=== PATIENT | female | born 1960 | race Caucasian/White ===

== ENCOUNTER 2019-12-04 12:48 | Observation (INO) ==
[2019-12-04 13:35] LABS: VBG HCO3 25 mEq/L (21-27); VBG PCO2 48 mmHg (41-51); VBG PH 7.33 pH Units (7.32-7.42); VBG PO2 99 mmHg (25-50)
[2019-12-04 13:38] LABS: Basophils # 0.1 K/mcL (0.0-0.2); Basophils % 1.2 %; Eosinophils # 0.1 K/mcL (0.0-0.6); Eosinophils % 2.8 %; Hematocrit 36.3 % (35.3-44.9); Hemoglobin 11.8 g/dL (11.5-15.4); INR 0.9; Immature Granulocytes % 0.2 % (0-4); Lymphocytes # 2.6 K/mcL (0.6-4.6); Lymphocytes % 52.1 %; Mean Corpuscular HGB Conc 32.5 g/dL (31.6-35.5); Mean Corpuscular Hemoglobin 35.1 pg (28.0-33.3); Mean Platelet Volume 9.3 fL (9.4-12.4); Monocytes # 0.5 K/mcL (0.0-1.3); Monocytes % 10.3 %; Neutrophils # 1.7 K/mcL (1.6-8.9); Platelet Count 114 K/mcL (140-400); Prothrombin Time 10.1 Seconds (9.4-12.1); Red Blood Count 3.36 M/mcL (3.82-4.97); Red Cell Distribution Width 14.3 % (11.5-14.5); Segmented Neutrophils % 33.4 %; White Blood Count 5.1 K/mcL (4.3-11.1)
[2019-12-04 13:55] LABS: Alanine Aminotransferase 40 Units/L (7-52); Albumin 3.8 g/dL (3.5-5.7); Albumin/Globulin Ratio 1.7 (1.1-2.2); Alkaline Phosphatase 129 Units/L (34-104); Aspartate Amino Transferase 121 Units/L (13-39); BUN/Creatinine Ratio 11 (6-26); Bilirubin,Direct 0.1 mg/dL (0.0-0.2); Bilirubin,Indirect 0.3 mg/dL (0.0-1.0); Bilirubin,Total 0.4 mg/dL (0.3-1.0); Blood Urea Nitrogen 7 mg/dL (6-20); Calcium 9.2 mg/dL (8.6-10.3); Carbon Dioxide 22 mEq/L (23-29); Chloride 106 mEq/L (98-107); Creatine Kinase 101 Units/L (30-223); Ethanol 271 mg/dL (Less than 10); Globulin 2.3 g/dL (2.4-3.5); Glucose 93 mg/dL (70-105); Osmolality,Calculated 292 (280-300); Potassium 3.3 mEq/L (3.5-5.1); Sodium 142 mEq/L (136-145); Total Protein 6.1 g/dL (6.4-8.9); Troponin I < 0.03 ng/mL (< 0.04); eGFR For African Americans > 60 (> 60); eGFR For Non-African Americans > 60 (> 60)
[2019-12-04 13:58] LABS: Bilirubin,Urine Negative (Negative); Blood,Urine Negative (Negative); Clarity,Urine Clear (Clear); Color,Urine Colorless (Yellow); Glucose,Urine (UA) Normal (Normal); Ketones,Urine Negative (Negative); Leukocyte Esterase,Urine Negative (Negative); Nitrite,Urine Negative (Negative); Protein,Urine Negative (Neg-Trace); Specific Gravity,Urine 1.005 (1.010-1.025); Urobilinogen,Urine Normal (Normal)
[2019-12-04 14:08] LABS: Amphetamine Screen,Urine Negative ng/mL (Cutoff=1000); Barbiturate Screen,Urine Negative ng/mL (Cutoff=200); Benzodiazepines Screen,Urine Negative ng/mL (Cutoff=200); Cannabinoid Screen,Urine Negative ng/mL (Cutoff = 50); Cocaine Screen,Urine Negative ng/mL (Cutoff= 300); Opiate Screen,Urine Positive ng/mL (Cutoff=300); Phencyclidine Screen,Urine Negative ng/mL (Cutoff=25)
[2019-12-04] MEDS ORDERED: Potassium Chloride 40 MEQ, Lidocaine 1% 2 ML in D5% in Water 500 ML IVPB ONE (14:49)
[2019-12-04] MEDS ORDERED: *HR* HYDROcodone/Acet 5/325 mg TABLET PO PRN (16:03)
[2019-12-04] MEDS ORDERED: Naloxone 0.4 MG/ML INJ IVP PRN (16:03)
[2019-12-04] MEDS ORDERED: Ondansetron 4 MG/2 ML VIAL IVP PRN (16:03)
[2019-12-04] MEDS ORDERED: D5% in Water 1,000 ML IVC PRN (16:06)
[2019-12-04] MEDS ORDERED: Dextrose Gel 15 GM/37.5 ML TUBE PO PRN ×2 (16:06)
[2019-12-04] MEDS ORDERED: *HR* LORazepam 2 MG/ML VIAL IVP PRN ×3 (16:06→16:08)
[2019-12-04] MEDS ORDERED: *HR* Dextrose 50 % in Water (Vial) 50 ML VIAL IVP PRN (16:06)
[2019-12-04 16:34] LABS: Lipase 45 Units/L (11-82)
[2019-12-04] MEDS ORDERED: Thiamine (B-1) 100 MG, Folic Acid 1 MG, MVI, adult with vitamin K 10 ML in 0.9 % Sodi... IVPB SCH (18:00)
[2019-12-04] MEDS: Lactulose Oral Soln 20 GM/30 ML UDC PO SCH (19:59)
[2019-12-04] MEDS: Nicotine 21 MG PATCH.TD24 TD SCH (20:03)
[2019-12-04] MEDS: Insulin LISPRO 300 UNITS/3 ML VIAL SQ SCH (20:03)
[2019-12-05] MEDS: Insulin LISPRO 300 UNITS/3 ML VIAL SQ SCH ×2 (02:16→06:08)
[2019-12-05 04:17] LABS: Eosinophils % 1.4 %
[2019-12-05 04:19] LABS: Basophils % 0.5 %; Eosinophils # 0.1 K/mcL (0.0-0.6); Hematocrit 38.1 % (35.3-44.9); Hemoglobin 12.4 g/dL (11.5-15.4); Immature Granulocytes % 0.3 % (0-4); Immature Platelets 3.2 % (1.1-6.1); Lymphocytes # 1.6 K/mcL (0.6-4.6); Lymphocytes % 18.3 %; Mean Corpuscular HGB Conc 32.5 g/dL (31.6-35.5); Mean Corpuscular Hemoglobin 36.3 pg (28.0-33.3); Mean Corpuscular Volume 111.4 fL (83.0-100.0); Mean Platelet Volume 9.8 fL (9.4-12.4); Monocytes # 0.5 K/mcL (0.0-1.3); Monocytes % 6.3 %; Neutrophils # 6.3 K/mcL (1.6-8.9); Platelet Count 116 K/mcL (140-400); Red Blood Count 3.42 M/mcL (3.82-4.97); Red Cell Distribution Width 14.3 % (11.5-14.5); Segmented Neutrophils % 73.2 %; White Blood Count 8.6 K/mcL (4.3-11.1)
[2019-12-05 04:40] LABS: BUN/Creatinine Ratio 14 (6-26); Blood Urea Nitrogen 6 mg/dL (6-20); Calcium 8.2 mg/dL (8.6-10.3); Carbon Dioxide 25 mEq/L (23-29); Chloride 106 mEq/L (98-107); Glucose 90 mg/dL (70-105); Magnesium 1.2 mg/dL (1.6-2.6); Osmolality,Calculated 283 (280-300); Potassium 3.9 mEq/L (3.5-5.1); Sodium 138 mEq/L (136-145); eGFR For African Americans > 60 (> 60); eGFR For Non-African Americans > 60 (> 60)
[2019-12-05 05:42] LABS: Platelet Estimate Normal (Normal)
[2019-12-05 07:08] VITALS: BP 138/87
[2019-12-05] MEDS: Lactulose Oral Soln 20 GM/30 ML UDC PO SCH (08:29)
[2019-12-05] MEDS: Nicotine 21 MG PATCH.TD24 TD SCH (08:29)
== END 2019-12-05 10:25 | disposition home or self-care (01) ==
LOC: 3BNU 12:48 → EMEROOARM 12:48 → 3BNU 18:40
PROVIDERS: ADMIT Internal Medicine; ATTEND Internal Medicine

== ENCOUNTER 2021-11-03 23:42 | Inpatient (IN) ==
[2021-11-04 00:48] LABS: Basophils % 0.2 %; Eosinophils % 0.1 %; Hematocrit 27.3 % (35.3-44.9); Hemoglobin 9.8 g/dL (11.5-15.4); Immature Granulocytes % 0.4 % (0-4); Lymphocytes # 1.1 K/mcL (0.6-4.6); Lymphocytes % 8.6 %; Mean Corpuscular HGB Conc 35.9 g/dL (31.6-35.5); Mean Corpuscular Hemoglobin 32.7 pg (28.0-33.3); Mean Platelet Volume 12.2 fL (9.4-12.4); Monocytes # 0.8 K/mcL (0.0-1.3); Monocytes % 6.1 %; Neutrophils # 10.7 K/mcL (1.6-8.9); Platelet Count 134 K/mcL (140-400); Red Cell Distribution Width 17.2 % (11.5-14.5); Segmented Neutrophils % 84.6 %; White Blood Count 12.6 K/mcL (4.3-11.1)
[2021-11-04 01:09] LABS: Alanine Aminotransferase 24 Units/L (7-52); Albumin 2.7 g/dL (3.5-5.7); Alkaline Phosphatase 383 Units/L (34-104); Aspartate Amino Transferase 116 Units/L (13-39); BUN/Creatinine Ratio 16 (6-26); Bilirubin,Total 6.9 mg/dL (0.3-1.0); Blood Urea Nitrogen 9 mg/dL (8-23); Calcium 8.2 mg/dL (8.6-10.3); Carbon Dioxide 30 mEq/L (23-29); Chloride 77 mEq/L (98-107); Globulin 2.7 g/dL (2.4-3.5); Glucose 126 mg/dL (70-105); Osmolality,Calculated 246 (280-300); Sodium 118 mEq/L (136-145); Total Protein 5.4 g/dL (6.4-8.9); Troponin I 0.03 ng/mL (< 0.04); eGFR For African Americans > 60 (> 60); eGFR For Non-African Americans > 60 (> 60)
[2021-11-04] MEDS ORDERED: Iopamidol - 370 500 ML MLS IVP ONE (03:03)
[2021-11-04 03:45] LABS: INR 1.8; Prothrombin Time 19.9 Seconds (9.4-12.1)
[2021-11-04 03:47] LABS: Activated Partial Thrombo Time 31.4 Seconds (26.0-36.0)
[2021-11-04] MEDS ORDERED: CefTRIAXone 1,000 MG VIAL IM ONE (04:30)
[2021-11-04] MEDS ORDERED: cefTRIAXone 1,000 MG in 0.9 % Sodium Chloride 10 ML IVP ONE (04:33)
[2021-11-04 04:41] LABS: Bilirubin,Urine Negative (Negative); Blood,Urine Negative (Negative); Clarity,Urine Clear (Clear); Color,Urine Light-Yellow (Yellow); Glucose,Urine (UA) Normal (Normal); Ketones,Urine Negative (Negative); Leukocyte Esterase,Urine Negative (Negative); Nitrite,Urine Negative (Negative); Protein,Urine Negative (Neg-Trace); Specific Gravity,Urine 1.018 (1.010-1.025); Urobilinogen,Urine Normal (Normal)
[2021-11-04] MEDS ORDERED: Ondansetron 4 MG/2 ML VIAL IVP PRN (04:50)
[2021-11-04] MEDS ORDERED: Naloxone 0.4 MG/ML INJ IVP PRN (04:50)
[2021-11-04 04:54] LABS: Amphetamine Screen,Urine Negative ng/mL (Cutoff=1000); Barbiturate Screen,Urine Negative ng/mL (Cutoff=200); Benzodiazepines Screen,Urine Negative ng/mL (Cutoff=200); Cannabinoid Screen,Urine Positive ng/mL (Cutoff = 50); Cocaine Screen,Urine Negative ng/mL (Cutoff= 300); Opiate Screen,Urine Negative ng/mL (Cutoff=300); Phencyclidine Screen,Urine Negative ng/mL (Cutoff=25)
[2021-11-04] MEDS ORDERED: D5% in Water 1,000 ML IVC PRN (05:23)
[2021-11-04] MEDS ORDERED: *HR* Dextrose 50 % in Water (Syg) 50 ML SYRINGE IVP PRN (05:23)
[2021-11-04] MEDS ORDERED: Dextrose Gel 15 GM/37.5 ML TUBE PO PRN ×2 (05:23)
[2021-11-04] MEDS ORDERED: Lactulose 200 GM, Sodium Chloride IRRigation 700 ML RC ONE (05:29)
[2021-11-04] MEDS ORDERED: Albumin 25% 25gram/100mL 25 GM/100 ML IV.SOLN IVPB ONE (06:13)
[2021-11-04] MEDS: MetroNIDAZOLE 500 MG/100 ML 500 MG/100 ML BAG IVPB SCH ×3 (06:33→23:58)
[2021-11-04] MEDS ORDERED: *HR* LORazepam 2 MG/ML VIAL IVP PRN ×2 (06:36)
[2021-11-04 06:41] LABS: ABG Base Excess 6 mEq/L (-2 to 3); ABG HCO3 30 mEq/L (21-27); ABG Oxygen Saturation 96 % (95-98); ABG PCO2 37 mmHg (35-45); ABG PH 7.51 pH Units (7.32-7.45); ABG PO2 71 mmHg (85-104); ABG TCO2 31 mEq/L (20-26)
[2021-11-04] MEDS ORDERED: 0.9 % Sodium Chloride 1,000 ML IVC SCH (07:00)
[2021-11-04] MEDS ORDERED: Potassium Chloride Elixir 20 MEQ/15 ML UDC PO ONE (07:24)
[2021-11-04 07:27] LABS: Acetaminophen < 10 mcg/mL (10-20); Ethanol 19 mg/dL (Less than 10); Salicylate < 2.5 mg/dL (15.0-30.0)
[2021-11-04 07:34] LABS: Albumin 2.6 g/dL (3.5-5.7); BUN/Creatinine Ratio 15 (6-26); Blood Urea Nitrogen 7 mg/dL (8-23); Calcium 8.3 mg/dL (8.6-10.3); Carbon Dioxide 33 mEq/L (23-29); Chloride 81 mEq/L (98-107); Glucose 100 mg/dL (70-105); Lactate Dehydrogenase 163 Units/L (140-271); Osmolality,Calculated 248 (280-300); Potassium 2.5 mEq/L (3.5-5.1); Sodium 120 mEq/L (136-145); eGFR For African Americans > 60 (> 60); eGFR For Non-African Americans > 60 (> 60)
[2021-11-04 08:13] LABS: Adenovirus Not Detected (Not Detect); Bordetella Pertussis Not Detected (Not Detect); Chlamydophila pneumoniae Not Detected (Not Detect); Coronavirus 229E Not Detected (Not Detect); Coronavirus HKU1 Not Detected (Not Detect); Coronavirus NL63 Not Detected (Not Detect); Coronavirus OC43 Not Detected (Not Detect); Human Metapneumovirus Not Detected (Not Detect); Human Rhinovirus/Enterovirus Not Detected (Not Detect); Influenza A Subtype 2009 H1 Not Detected (Not Detect); Influenza B Not Detected (Not Detect); Mycoplasma pneumoniae Not Detected (Not Detect); Parainfluenza Virus 1 Not Detected (Not Detect); Parainfluenza Virus 2 Not Detected (Not Detect); Parainfluenza Virus 3 Not Detected (Not Detect); Parainfluenza Virus 4 Not Detected (Not Detect); Respiratory Syncytial Virus Not Detected (Not Detect)
[2021-11-04 08:15] LABS: SARS-CoV-2 DETECTED (Not Detect)
[2021-11-04] MEDS: Lactulose Oral Soln 20 GM/30 ML UDC PO SCH ×3 (08:35→20:51)
[2021-11-04] MEDS: Thiamine (B-1) 100 MG TABLET PO SCH (08:36)
[2021-11-04] MEDS: Folic Acid 1 MG TABLET PO SCH (08:36)
[2021-11-04] MEDS: Vitamin B Complex/Vit C/Vit E 1 EACH TABLET PO SCH (08:36)
[2021-11-04] MEDS: Lactobacillus 1 EACH CAP.SPRINK PO SCH ×2 (08:36→20:51)
[2021-11-04] MEDS ORDERED: Furosemide 40 MG TABLET PO SCH (09:00)
[2021-11-04] MEDS ORDERED: predniSONE 20 MG TABLET PO SCH (09:00)
[2021-11-04] MEDS ORDERED: Chlorhexidine Rinse 15 ML MOUTHWASH MM SCH (09:00)
[2021-11-04] MEDS: Nicotine 21 MG PATCH.TD24 TD SCH (09:24)
[2021-11-04] MEDS ORDERED: Ipratropium/Albuterol Neb 3 ML IH SCH (10:00)
[2021-11-04 10:19] LABS: BUN/Creatinine Ratio 14 (6-26); Blood Urea Nitrogen 6 mg/dL (8-23); Calcium 8.7 mg/dL (8.6-10.3); Carbon Dioxide 33 mEq/L (23-29); Chloride 83 mEq/L (98-107); Glucose 90 mg/dL (70-105); Osmolality,Calculated 255 (280-300); Potassium 2.8 mEq/L (3.5-5.1); Sodium 124 mEq/L (136-145); eGFR For African Americans > 60 (> 60); eGFR For Non-African Americans > 60 (> 60)
[2021-11-04 10:21] LABS: Uric Acid 4.3 mg/dL (2.3-7.6)
[2021-11-04] MEDS: Budesonide/Formoterol 160/4.5 1 PUFF INH IH SCH ×2 (11:02→22:06)
[2021-11-04] MEDS: Ipratropium 1 PUFF INHALER IH SCH ×3 (11:02→22:05)
[2021-11-04] MEDS: 0.9 % Sodium Chloride w KCl 20 MEQ/1,000 ML MLS IVC SCH (13:16)
[2021-11-04 17:03] LABS: BUN/Creatinine Ratio 14 (6-26); Blood Urea Nitrogen 6 mg/dL (8-23); Calcium 8.6 mg/dL (8.6-10.3); Carbon Dioxide 32 mEq/L (23-29); Chloride 89 mEq/L (98-107); Glucose 157 mg/dL (70-105); Osmolality,Calculated 261 (280-300); Potassium 3.8 mEq/L (3.5-5.1); Sodium 125 mEq/L (136-145); eGFR For African Americans > 60 (> 60); eGFR For Non-African Americans > 60 (> 60)
[2021-11-04 19:15] LABS: BUN/Creatinine Ratio 13 (6-26); Blood Urea Nitrogen 6 mg/dL (8-23); Calcium 8.6 mg/dL (8.6-10.3); Carbon Dioxide 29 mEq/L (23-29); Chloride 90 mEq/L (98-107); Glucose 170 mg/dL (70-105); Osmolality,Calculated 264 (280-300); Potassium 3.6 mEq/L (3.5-5.1); Sodium 126 mEq/L (136-145); eGFR For African Americans > 60 (> 60); eGFR For Non-African Americans > 60 (> 60)
[2021-11-04] MEDS: Magnesium Oxide 400 MG TABLET PO SCH (20:51)
[2021-11-05] MEDS: Ipratropium 1 PUFF INHALER IH SCH ×4 (04:05→22:30)
[2021-11-05] MEDS: cefTRIAXone 2,000 MG in 0.9 % Sodium Chloride 20 ML IVPB SCH (04:50)
[2021-11-05] MEDS: 0.9 % Sodium Chloride w KCl 20 MEQ/1,000 ML MLS IVC SCH (04:52)
[2021-11-05] MEDS: MetroNIDAZOLE 500 MG/100 ML 500 MG/100 ML BAG IVPB SCH ×3 (06:03→21:12)
[2021-11-05] MEDS: Lactulose Oral Soln 20 GM/30 ML UDC PO SCH ×3 (09:32→21:11)
[2021-11-05] MEDS: Lactobacillus 1 EACH CAP.SPRINK PO SCH ×2 (09:32→21:11)
[2021-11-05] MEDS: PrednisoLONE Oral Soln 15 MG/5 ML UDC PO SCH (09:32)
[2021-11-05] MEDS: Folic Acid 1 MG TABLET PO SCH (09:32)
[2021-11-05] MEDS: Magnesium Oxide 400 MG TABLET PO SCH ×2 (09:32→21:11)
[2021-11-05] MEDS: Thiamine (B-1) 100 MG TABLET PO SCH (09:32)
[2021-11-05] MEDS: Vitamin B Complex/Vit C/Vit E 1 EACH TABLET PO SCH (09:32)
[2021-11-05] MEDS: Multivit/Ca/Min/Fe/FA 1 TAB TABLET PO SCH (09:32)
[2021-11-05] MEDS: Nicotine 21 MG PATCH.TD24 TD SCH (09:32)
[2021-11-05 09:37] LABS: Eosinophils % 0.1 %; Immature Granulocytes % 0.4 % (0-4); Mean Corpuscular Volume 94.1 fL (83.0-100.0)
[2021-11-05 09:39] LABS: Hematocrit 24.1 % (35.3-44.9); Hemoglobin 8.5 g/dL (11.5-15.4); Immature Platelets 10.7 % (1.1-6.1); Lymphocytes # 0.8 K/mcL (0.6-4.6); Mean Corpuscular HGB Conc 35.3 g/dL (31.6-35.5); Mean Corpuscular Hemoglobin 33.2 pg (28.0-33.3); Mean Platelet Volume 11.7 fL (9.4-12.4); Monocytes # 0.6 K/mcL (0.0-1.3); Monocytes % 6.3 %; Neutrophils # 8.2 K/mcL (1.6-8.9); Red Blood Count 2.56 M/mcL (3.82-4.97); Red Cell Distribution Width 17.7 % (11.5-14.5); Segmented Neutrophils % 85.2 %; White Blood Count 9.6 K/mcL (4.3-11.1)
[2021-11-05 09:49] LABS: BUN/Creatinine Ratio 15 (6-26); Blood Urea Nitrogen 5 mg/dL (8-23); Calcium 8.3 mg/dL (8.6-10.3); Carbon Dioxide 29 mEq/L (23-29); Chloride 95 mEq/L (98-107); Glucose 156 mg/dL (70-105); Osmolality,Calculated 266 (280-300); Potassium 3.5 mEq/L (3.5-5.1); Sodium 128 mEq/L (136-145); eGFR For African Americans > 60 (> 60); eGFR For Non-African Americans > 60 (> 60)
[2021-11-05 09:50] LABS: Albumin 2.7 g/dL (3.5-5.7); Albumin/Globulin Ratio 1.3 (1.1-2.2); Bilirubin,Direct 2.8 mg/dL (0.0-0.2); Bilirubin,Indirect 2.2 mg/dL (0.0-1.0); Globulin 2.1 g/dL (2.4-3.5); Total Protein 4.8 g/dL (6.4-8.9)
[2021-11-05 09:52] LABS: % Iron Saturation 8 % (15-50); Iron 18 mcg/dL (50-170); Transferrin 159 mg/dL (203-362)
[2021-11-05 10:03] LABS: Ferritin 43 ng/mL (10-120)
[2021-11-05 10:36] LABS: Platelet Count 68 K/mcL (140-400)
[2021-11-05 10:39] LABS: Folate 4.3 ng/mL (3.0-16.0); Platelet Estimate Decreased (Normal); Target Cells 1+ (Not Present)
[2021-11-05 10:46] LABS: Vitamin B12 > 1500 pg/mL (250-1100)
[2021-11-05] MEDS: Budesonide/Formoterol 160/4.5 1 PUFF INH IH SCH ×2 (10:51→22:30)
[2021-11-05] MEDS ORDERED: Iron Sucrose Complex 400 MG in 0.9 % Sodium Chloride 250 ML IVPB ONE (14:22)
[2021-11-05] MEDS ORDERED: 0.9 % Sodium Chloride w KCl 20 MEQ/1,000 ML MLS IVC SCH (15:15)
[2021-11-06 02:35] LABS: Basophils % 0.1 %; Immature Granulocytes % 0.3 % (0-4)
[2021-11-06 02:37] LABS: Hematocrit 27.1 % (35.3-44.9); Hemoglobin 9.5 g/dL (11.5-15.4); Immature Platelets 11.7 % (1.1-6.1); Lymphocytes # 0.4 K/mcL (0.6-4.6); Lymphocytes % 3.7 %; Mean Corpuscular HGB Conc 35.1 g/dL (31.6-35.5); Mean Corpuscular Hemoglobin 32.5 pg (28.0-33.3); Mean Corpuscular Volume 92.8 fL (83.0-100.0); Monocytes # 0.8 K/mcL (0.0-1.3); Monocytes % 6.5 %; Red Blood Count 2.92 M/mcL (3.82-4.97); Red Cell Distribution Width 18.1 % (11.5-14.5); Segmented Neutrophils % 89.4 %; White Blood Count 11.6 K/mcL (4.3-11.1)
[2021-11-06 02:38] LABS: Neutrophils # 10.4 K/mcL (1.6-8.9); Platelet Count 79 K/mcL (140-400)
[2021-11-06 02:53] LABS: BUN/Creatinine Ratio 14 (6-26); Blood Urea Nitrogen 5 mg/dL (8-23); Calcium 8.7 mg/dL (8.6-10.3); Carbon Dioxide 27 mEq/L (23-29); Chloride 97 mEq/L (98-107); Glucose 158 mg/dL (70-105); Osmolality,Calculated 271 (280-300); Potassium 3.6 mEq/L (3.5-5.1); Sodium 130 mEq/L (136-145); eGFR For African Americans > 60 (> 60); eGFR For Non-African Americans > 60 (> 60)
[2021-11-06 02:54] LABS: Albumin 2.8 g/dL (3.5-5.7); Albumin/Globulin Ratio 1.2 (1.1-2.2); Bilirubin,Direct 3.1 mg/dL (0.0-0.2); Bilirubin,Indirect 2.4 mg/dL (0.0-1.0); Bilirubin,Total 5.5 mg/dL (0.3-1.0); Globulin 2.3 g/dL (2.4-3.5); Total Protein 5.1 g/dL (6.4-8.9)
[2021-11-06] MEDS: Ipratropium 1 PUFF INHALER IH SCH ×4 (03:48→21:23)
[2021-11-06] MEDS: cefTRIAXone 2,000 MG in 0.9 % Sodium Chloride 20 ML IVPB SCH (05:02)
[2021-11-06] MEDS: MetroNIDAZOLE 500 MG/100 ML 500 MG/100 ML BAG IVPB SCH (05:03)
[2021-11-06] MEDS: PrednisoLONE Oral Soln 15 MG/5 ML UDC PO SCH (08:24)
[2021-11-06] MEDS: Lactobacillus 1 EACH CAP.SPRINK PO SCH (08:24)
[2021-11-06] MEDS: Thiamine (B-1) 100 MG TABLET PO SCH (08:24)
[2021-11-06] MEDS: Multivit/Ca/Min/Fe/FA 1 TAB TABLET PO SCH (08:24)
[2021-11-06] MEDS: Lactulose Oral Soln 20 GM/30 ML UDC PO SCH ×3 (08:24→20:42)
[2021-11-06] MEDS: Magnesium Oxide 400 MG TABLET PO SCH ×2 (08:24→20:42)
[2021-11-06] MEDS: Folic Acid 1 MG TABLET PO SCH (08:25)
[2021-11-06] MEDS: Nicotine 21 MG PATCH.TD24 TD SCH (08:25)
[2021-11-06] MEDS: Budesonide/Formoterol 160/4.5 1 PUFF INH IH SCH (13:50)
[2021-11-07 03:48] LABS: Hemoglobin 8.8 g/dL (11.5-15.4)
[2021-11-07 03:51] LABS: Hematocrit 25.3 % (35.3-44.9); Immature Granulocytes % 0.5 % (0-4); Immature Platelets 12.9 % (1.1-6.1); Lymphocytes # 0.9 K/mcL (0.6-4.6); Lymphocytes % 9.5 %; Mean Corpuscular HGB Conc 34.8 g/dL (31.6-35.5); Mean Corpuscular Hemoglobin 33.2 pg (28.0-33.3); Mean Corpuscular Volume 95.5 fL (83.0-100.0); Mean Platelet Volume 11.9 fL (9.4-12.4); Monocytes # 0.8 K/mcL (0.0-1.3); Monocytes % 8.2 %; Red Blood Count 2.65 M/mcL (3.82-4.97); Red Cell Distribution Width 18.7 % (11.5-14.5); Segmented Neutrophils % 81.8 %; White Blood Count 9.6 K/mcL (4.3-11.1)
[2021-11-07 04:02] LABS: Neutrophils # 7.9 K/mcL (1.6-8.9); Platelet Count 60 K/mcL (140-400)
[2021-11-07 04:09] LABS: BUN/Creatinine Ratio 18 (6-26); Blood Urea Nitrogen 6 mg/dL (8-23); Carbon Dioxide 26 mEq/L (23-29); Chloride 100 mEq/L (98-107); Glucose 114 mg/dL (70-105); Osmolality,Calculated 270 (280-300); Potassium 3.5 mEq/L (3.5-5.1); Sodium 131 mEq/L (136-145); eGFR For African Americans > 60 (> 60); eGFR For Non-African Americans > 60 (> 60)
[2021-11-07] MEDS: Ipratropium 1 PUFF INHALER IH SCH ×4 (04:17→22:52)
[2021-11-07 04:34] LABS: Albumin 2.5 g/dL (3.5-5.7); Albumin/Globulin Ratio 1.1 (1.1-2.2); Bilirubin,Direct 1.7 mg/dL (0.0-0.2); Bilirubin,Total 4.7 mg/dL (0.3-1.0); Globulin 2.3 g/dL (2.4-3.5); Total Protein 4.8 g/dL (6.4-8.9)
[2021-11-07] MEDS: cefTRIAXone 2,000 MG in 0.9 % Sodium Chloride 20 ML IVPB SCH (06:07)
[2021-11-07] MEDS: PrednisoLONE Oral Soln 15 MG/5 ML UDC PO SCH (09:52)
[2021-11-07] MEDS: Nicotine 21 MG PATCH.TD24 TD SCH (09:52)
[2021-11-07] MEDS: Magnesium Oxide 400 MG TABLET PO SCH ×2 (09:53→20:02)
[2021-11-07] MEDS: Lactulose Oral Soln 20 GM/30 ML UDC PO SCH ×3 (09:53→20:02)
[2021-11-07] MEDS: Multivit/Ca/Min/Fe/FA 1 TAB TABLET PO SCH (09:53)
[2021-11-07] MEDS: Folic Acid 1 MG TABLET PO SCH (09:53)
[2021-11-07] MEDS: Thiamine (B-1) 100 MG TABLET PO SCH (09:53)
[2021-11-08] MEDS: Ipratropium 1 PUFF INHALER IH SCH ×4 (03:47→23:59)
[2021-11-08] MEDS: cefTRIAXone 2,000 MG in 0.9 % Sodium Chloride 20 ML IVPB SCH (04:14)
[2021-11-08] MEDS: Lactulose Oral Soln 20 GM/30 ML UDC PO SCH ×3 (09:35→20:42)
[2021-11-08] MEDS: Folic Acid 1 MG TABLET PO SCH (09:35)
[2021-11-08] MEDS: Thiamine (B-1) 100 MG TABLET PO SCH (09:35)
[2021-11-08] MEDS: Nicotine 21 MG PATCH.TD24 TD SCH (09:35)
[2021-11-08] MEDS: Multivit/Ca/Min/Fe/FA 1 TAB TABLET PO SCH (09:35)
[2021-11-08] MEDS: Magnesium Oxide 400 MG TABLET PO SCH ×2 (09:35→20:42)
[2021-11-08 09:43] LABS: Mycoplasma pneumoniae IgG 0.28 U/L (<=0.09)
[2021-11-08] MEDS: PrednisoLONE Oral Soln 15 MG/5 ML UDC PO SCH (10:56)
[2021-11-08] MEDS: *HR* LORazepam 2 MG/ML VIAL IVP PRN ×2 (10:56→20:42)
[2021-11-09] MEDS: *HR* LORazepam 2 MG/ML VIAL IVP PRN (02:15)
[2021-11-09] MEDS: Ipratropium 1 PUFF INHALER IH SCH ×4 (04:28→22:22)
[2021-11-09 07:07] LABS: Basophils % 0.1 %; Lymphocytes % 7.1 %; Red Blood Count 2.63 M/mcL (3.82-4.97); Red Cell Distribution Width 19.9 % (11.5-14.5)
[2021-11-09 07:09] LABS: Eosinophils % 0.1 %; Hematocrit 25.3 % (35.3-44.9); Hemoglobin 8.6 g/dL (11.5-15.4); Immature Granulocytes % 0.6 % (0-4); Immature Platelets 9.5 % (1.1-6.1); Lymphocytes # 0.6 K/mcL (0.6-4.6); Mean Corpuscular Hemoglobin 32.7 pg (28.0-33.3); Mean Corpuscular Volume 96.2 fL (83.0-100.0); Mean Platelet Volume 10.9 fL (9.4-12.4); Neutrophils # 7.2 K/mcL (1.6-8.9); Segmented Neutrophils % 81.1 %; White Blood Count 8.9 K/mcL (4.3-11.1)
[2021-11-09 07:17] LABS: Platelet Count 74 K/mcL (140-400)
[2021-11-09 07:26] LABS: Alanine Aminotransferase 19 Units/L (7-52); Albumin 2.6 g/dL (3.5-5.7); Albumin/Globulin Ratio 1.2 (1.1-2.2); Alkaline Phosphatase 233 Units/L (34-104); Aspartate Amino Transferase 42 Units/L (13-39); BUN/Creatinine Ratio 26 (6-26); Blood Urea Nitrogen 8 mg/dL (8-23); Calcium 8.4 mg/dL (8.6-10.3); Carbon Dioxide 28 mEq/L (23-29); Chloride 100 mEq/L (98-107); Globulin 2.1 g/dL (2.4-3.5); Glucose 118 mg/dL (70-105); Osmolality,Calculated 275 (280-300); Sodium 133 mEq/L (136-145); Total Protein 4.7 g/dL (6.4-8.9); eGFR For African Americans > 60 (> 60); eGFR For Non-African Americans > 60 (> 60)
[2021-11-09] MEDS ORDERED: methylPREDNISolone 4 MG TABLET PO SCH (07:45)
[2021-11-09] MEDS ORDERED: Spironolactone 12.5 MG TABLET PO SCH (09:00)
[2021-11-09] MEDS ORDERED: Furosemide 20 MG/2 ML VIAL IVP SCH (09:00)
[2021-11-09] MEDS: Thiamine (B-1) 100 MG TABLET PO SCH (10:51)
[2021-11-09] MEDS: Lactulose Oral Soln 20 GM/30 ML UDC PO SCH ×3 (10:51→20:33)
[2021-11-09] MEDS: Folic Acid 1 MG TABLET PO SCH (10:51)
[2021-11-09] MEDS: Multivit/Ca/Min/Fe/FA 1 TAB TABLET PO SCH (10:51)
[2021-11-09] MEDS: Nicotine 21 MG PATCH.TD24 TD SCH (10:52)
[2021-11-09] MEDS: Magnesium Oxide 400 MG TABLET PO SCH ×2 (10:55→20:33)
[2021-11-09] MEDS ORDERED: Furosemide 20 MG TABLET PO PRN (17:41)
[2021-11-10] MEDS: Melatonin 3 MG TABLET PO PRN ×2 (00:35→22:31)
[2021-11-10 01:10] LABS: Hemoglobin 9.5 g/dL (11.5-15.4); Mean Platelet Volume 11.4 fL (9.4-12.4); Monocytes % 11.2 %
[2021-11-10 01:12] LABS: Basophils % 0.1 %; Eosinophils % 0.1 %; Hematocrit 27.8 % (35.3-44.9); Immature Granulocytes % 0.5 % (0-4); Immature Platelets 9.2 % (1.1-6.1); Lymphocytes # 0.9 K/mcL (0.6-4.6); Lymphocytes % 8.6 %; Mean Corpuscular HGB Conc 34.2 g/dL (31.6-35.5); Mean Corpuscular Hemoglobin 32.6 pg (28.0-33.3); Mean Corpuscular Volume 95.5 fL (83.0-100.0); Monocytes # 1.2 K/mcL (0.0-1.3); Neutrophils # 8.6 K/mcL (1.6-8.9); Platelet Count 107 K/mcL (140-400); Red Blood Count 2.91 M/mcL (3.82-4.97); Red Cell Distribution Width 20.3 % (11.5-14.5); Segmented Neutrophils % 79.5 %; White Blood Count 10.8 K/mcL (4.3-11.1)
[2021-11-10 01:29] LABS: Alanine Aminotransferase 21 Units/L (7-52); Albumin 2.7 g/dL (3.5-5.7); Albumin/Globulin Ratio 1.1 (1.1-2.2); Alkaline Phosphatase 228 Units/L (34-104); Aspartate Amino Transferase 47 Units/L (13-39); BUN/Creatinine Ratio 17 (6-26); Bilirubin,Total 5.9 mg/dL (0.3-1.0); Blood Urea Nitrogen 9 mg/dL (8-23); Calcium 8.6 mg/dL (8.6-10.3); Carbon Dioxide 28 mEq/L (23-29); Chloride 97 mEq/L (98-107); Globulin 2.5 g/dL (2.4-3.5); Glucose 106 mg/dL (70-105); Osmolality,Calculated 275 (280-300); Potassium 2.9 mEq/L (3.5-5.1); Sodium 133 mEq/L (136-145); Total Protein 5.2 g/dL (6.4-8.9); eGFR For African Americans > 60 (> 60); eGFR For Non-African Americans > 60 (> 60)
[2021-11-10] MEDS: Ipratropium 1 PUFF INHALER IH SCH ×4 (03:55→21:15)
[2021-11-10] MEDS: Folic Acid 1 MG TABLET PO SCH (10:41)
[2021-11-10] MEDS: Thiamine (B-1) 100 MG TABLET PO SCH (10:41)
[2021-11-10] MEDS: Lactulose Oral Soln 20 GM/30 ML UDC PO SCH ×2 (10:41→20:20)
[2021-11-10] MEDS: Spironolactone 25 MG TABLET PO SCH (10:41)
[2021-11-10] MEDS: Magnesium Oxide 400 MG TABLET PO SCH ×2 (10:41→20:20)
[2021-11-10] MEDS: Multivit/Ca/Min/Fe/FA 1 TAB TABLET PO SCH (10:42)
[2021-11-10] MEDS: Furosemide 20 MG TABLET PO SCH (10:42)
[2021-11-10] MEDS: Nicotine 21 MG PATCH.TD24 TD SCH (10:42)
[2021-11-10] MEDS: Piperacillin/Tazobactam 3.375 GM in 0.9 % Sodium Chloride Mini Bag 100 ML IVPB SCH ×2 (10:43→18:37)
[2021-11-10] MEDS: methylPREDNISolone 4 MG TABLET PO SCH (14:47)
[2021-11-11] MEDS: Piperacillin/Tazobactam 3.375 GM in 0.9 % Sodium Chloride Mini Bag 100 ML IVPB SCH ×3 (02:20→16:29)
[2021-11-11 03:15] LABS: Basophils % 0.1 %; Eosinophils % 0.6 %
[2021-11-11 03:17] LABS: Eosinophils # 0.1 K/mcL (0.0-0.6); Hemoglobin 9.3 g/dL (11.5-15.4); Immature Granulocytes % 0.6 % (0-4); Immature Platelets 9.1 % (1.1-6.1); Lymphocytes # 1.4 K/mcL (0.6-4.6); Mean Corpuscular HGB Conc 34.4 g/dL (31.6-35.5); Mean Corpuscular Hemoglobin 33.1 pg (28.0-33.3); Mean Corpuscular Volume 96.1 fL (83.0-100.0); Mean Platelet Volume 11.5 fL (9.4-12.4); Monocytes # 1.1 K/mcL (0.0-1.3); Monocytes % 9.9 %; Platelet Count 110 K/mcL (140-400); Red Blood Count 2.81 M/mcL (3.82-4.97); Red Cell Distribution Width 20.2 % (11.5-14.5); Segmented Neutrophils % 76.8 %; White Blood Count 11.4 K/mcL (4.3-11.1)
[2021-11-11 03:23] LABS: Neutrophils # 8.8 K/mcL (1.6-8.9)
[2021-11-11 03:36] LABS: Alanine Aminotransferase 20 Units/L (7-52); Albumin 2.6 g/dL (3.5-5.7); Albumin/Globulin Ratio 1.1 (1.1-2.2); Alkaline Phosphatase 210 Units/L (34-104); Aspartate Amino Transferase 44 Units/L (13-39); BUN/Creatinine Ratio 21 (6-26); Bilirubin,Total 5.9 mg/dL (0.3-1.0); Blood Urea Nitrogen 9 mg/dL (8-23); Calcium 8.1 mg/dL (8.6-10.3); Carbon Dioxide 27 mEq/L (23-29); Chloride 97 mEq/L (98-107); Globulin 2.4 g/dL (2.4-3.5); Glucose 100 mg/dL (70-105); Magnesium 1.5 mg/dL (1.6-2.6); Osmolality,Calculated 273 (280-300); Potassium 2.9 mEq/L (3.5-5.1); Sodium 132 mEq/L (136-145); eGFR For African Americans > 60 (> 60); eGFR For Non-African Americans > 60 (> 60)
[2021-11-11] MEDS: Ipratropium 1 PUFF INHALER IH SCH ×4 (04:14→22:30)
[2021-11-11] MEDS: methylPREDNISolone 4 MG TABLET PO SCH (09:07)
[2021-11-11] MEDS: Lactulose Oral Soln 20 GM/30 ML UDC PO SCH ×2 (09:28→19:37)
[2021-11-11] MEDS: Folic Acid 1 MG TABLET PO SCH (09:29)
[2021-11-11] MEDS: Thiamine (B-1) 100 MG TABLET PO SCH (09:29)
[2021-11-11] MEDS: Spironolactone 25 MG TABLET PO SCH (09:29)
[2021-11-11] MEDS: Furosemide 20 MG TABLET PO SCH (09:29)
[2021-11-11] MEDS: Multivit/Ca/Min/Fe/FA 1 TAB TABLET PO SCH (09:29)
[2021-11-11] MEDS: Magnesium Oxide 400 MG TABLET PO SCH ×2 (09:29→19:37)
[2021-11-11] MEDS: Nicotine 21 MG PATCH.TD24 TD SCH (09:30)
[2021-11-11] MEDS ORDERED: Magnesium Sulfate 1 GM/102 ML PIGGYBACK IVPB ONE (13:58)
[2021-11-11] MEDS ORDERED: 0.9 % Sodium Chloride 500 ML IVC ONE (18:30)
[2021-11-11] MEDS: Melatonin 3 MG TABLET PO PRN (20:19)
[2021-11-12] MEDS: Piperacillin/Tazobactam 3.375 GM in 0.9 % Sodium Chloride Mini Bag 100 ML IVPB SCH ×3 (03:50→17:16)
[2021-11-12] MEDS: Ipratropium 1 PUFF INHALER IH SCH ×4 (04:25→22:36)
[2021-11-12 09:34] LABS: Hematocrit 26.4 % (35.3-44.9); Mean Corpuscular HGB Conc 34.1 g/dL (31.6-35.5); Mean Corpuscular Hemoglobin 33.7 pg (28.0-33.3); Mean Corpuscular Volume 98.9 fL (83.0-100.0); Mean Platelet Volume 10.7 fL (9.4-12.4); Platelet Count 141 K/mcL (140-400); Red Blood Count 2.67 M/mcL (3.82-4.97); Red Cell Distribution Width 19.9 % (11.5-14.5); White Blood Count 12.1 K/mcL (4.3-11.1)
[2021-11-12] MEDS: Magnesium Oxide 400 MG TABLET PO SCH ×2 (09:57→20:43)
[2021-11-12] MEDS: Folic Acid 1 MG TABLET PO SCH (09:57)
[2021-11-12] MEDS: Spironolactone 25 MG TABLET PO SCH (09:57)
[2021-11-12] MEDS: Multivit/Ca/Min/Fe/FA 1 TAB TABLET PO SCH (09:57)
[2021-11-12] MEDS: Lactulose Oral Soln 20 GM/30 ML UDC PO SCH ×2 (09:57→20:42)
[2021-11-12] MEDS: Thiamine (B-1) 100 MG TABLET PO SCH (09:57)
[2021-11-12] MEDS: Nicotine 21 MG PATCH.TD24 TD SCH (09:57)
[2021-11-12] MEDS: Furosemide 20 MG TABLET PO SCH (09:57)
[2021-11-12 10:22] LABS: Alanine Aminotransferase 20 Units/L (7-52); Albumin 2.6 g/dL (3.5-5.7); Albumin/Globulin Ratio 1.1 (1.1-2.2); Alkaline Phosphatase 192 Units/L (34-104); Aspartate Amino Transferase 48 Units/L (13-39); BUN/Creatinine Ratio 15 (6-26); Bilirubin,Total 7.2 mg/dL (0.3-1.0); Blood Urea Nitrogen 6 mg/dL (8-23); Calcium 7.9 mg/dL (8.6-10.3); Carbon Dioxide 28 mEq/L (23-29); Chloride 98 mEq/L (98-107); Globulin 2.4 g/dL (2.4-3.5); Glucose 139 mg/dL (70-105); Osmolality,Calculated 278 (280-300); Potassium 2.4 mEq/L (3.5-5.1); Sodium 134 mEq/L (136-145); eGFR For African Americans > 60 (> 60); eGFR For Non-African Americans > 60 (> 60)
[2021-11-12] MEDS: *HR* LORazepam 2 MG/ML VIAL IVP PRN (12:24)
[2021-11-12 18:12] LABS: Magnesium 1.3 mg/dL (1.6-2.6)
[2021-11-12] MEDS: Melatonin 3 MG TABLET PO PRN (20:43)
[2021-11-13] MEDS: Piperacillin/Tazobactam 3.375 GM in 0.9 % Sodium Chloride Mini Bag 100 ML IVPB SCH ×2 (02:24→12:22)
[2021-11-13] MEDS: Ipratropium 1 PUFF INHALER IH SCH ×2 (03:42→11:54)
[2021-11-13 09:49] LABS: Hemoglobin 8.5 g/dL (11.5-15.4); Mean Corpuscular Hemoglobin 34.3 pg (28.0-33.3); Mean Corpuscular Volume 100.8 fL (83.0-100.0); Mean Platelet Volume 10.3 fL (9.4-12.4); Platelet Count 160 K/mcL (140-400); Red Blood Count 2.48 M/mcL (3.82-4.97); Red Cell Distribution Width 19.9 % (11.5-14.5); White Blood Count 12.9 K/mcL (4.3-11.1)
[2021-11-13] MEDS: Lactulose Oral Soln 20 GM/30 ML UDC PO SCH (09:59)
[2021-11-13] MEDS: Magnesium Oxide 400 MG TABLET PO SCH (10:01)
[2021-11-13] MEDS: Multivit/Ca/Min/Fe/FA 1 TAB TABLET PO SCH (10:01)
[2021-11-13] MEDS: Folic Acid 1 MG TABLET PO SCH (10:02)
[2021-11-13] MEDS: Spironolactone 25 MG TABLET PO SCH (10:02)
[2021-11-13] MEDS: Furosemide 20 MG TABLET PO SCH (10:02)
[2021-11-13] MEDS: Thiamine (B-1) 100 MG TABLET PO SCH (10:02)
[2021-11-13] MEDS: Nicotine 21 MG PATCH.TD24 TD SCH (10:02)
[2021-11-13 10:08] LABS: Alanine Aminotransferase 21 Units/L (7-52); Albumin 2.4 g/dL (3.5-5.7); Alkaline Phosphatase 176 Units/L (34-104); Aspartate Amino Transferase 50 Units/L (13-39); BUN/Creatinine Ratio 17 (6-26); Blood Urea Nitrogen 6 mg/dL (8-23); Carbon Dioxide 27 mEq/L (23-29); Chloride 102 mEq/L (98-107); Globulin 2.5 g/dL (2.4-3.5); Glucose 113 mg/dL (70-105); Osmolality,Calculated 276 (280-300); Potassium 3.1 mEq/L (3.5-5.1); Sodium 134 mEq/L (136-145); Total Protein 4.9 g/dL (6.4-8.9); eGFR For African Americans > 60 (> 60); eGFR For Non-African Americans > 60 (> 60)
[2021-11-13 11:58] VITALS: BP 119/72; PULSE 99; TEMP 98.5; O2SAT 96
== END 2021-11-13 15:05 | disposition hospice, home (50) | DRG 720 ==
LOC: 2NENU 23:42 → EMEROOARM 23:42 → SUATTDRO 11-04 04:29 → 2NENU 11-04 05:27 → SUATTDRO 11-04 13:56
PROVIDERS: ADMIT Internal Medicine; ATTEND Internal Medicine